=== PATIENT | male | born 1935 | race Caucasian/White ===

== ENCOUNTER 2017-11-26 11:22 | Inpatient (IN) ==
[2017-11-26] MEDS ORDERED: MORPHINE 2 MG/1 ML SYRINGE IV PRN (12:15)
[2017-11-26] MEDS ORDERED: MAGNESIUM SULF RIDER 4 GM in PREMIX 1 EACH IV PRN (12:15)
[2017-11-26] MEDS ORDERED: ONDANSETRON 4 MG/2 ML VIAL IV PRN (12:15)
[2017-11-26] MEDS ORDERED: DOCUSATE SODIUM 100 MG CAPSULE PO PRN (12:15)
[2017-11-26] MEDS ORDERED: MAGNESIUM SULF RIDER 2 GM in PREMIX 1 EACH IV PRN (12:15)
[2017-11-26] MEDS ORDERED: ACETAMINOPHEN 325 MG TABLET PO PRN (12:15)
[2017-11-26] MEDS ORDERED: ALBUTEROL 2.5 MG/3 ML NEB RESP TX PRN (12:18)
[2017-11-26] MEDS ORDERED: DEXTROSE 50% 25 GM/50 ML VIAL IV PRN (12:19)
[2017-11-26] MEDS ORDERED: GLUCAGON 1 MG VIAL IM PRN (12:19)
[2017-11-26] MEDS ORDERED: SOTALOL 80 MG TABLET PO ONE (12:20)
[2017-11-26 13:59] LABS: Basophils # 0.1 10*3/uL (0.0-0.2); Basophils % 1.6 % (0.0-0.8); Eosinophils # 0.5 10*3/uL (0.0-0.87); Eosinophils % 5.3 % (0.00-10.9); Hematocrit 45.1 VOL% (42.0-52.0); Hemoglobin 14.7 GM/DL (14.0-18.0); Immature Granulocytes % 0.5 %; Immature Granulocytes Absolute 0.04 #; Lymphocytes # 1.5 10*3/uL (1.4-4.0); Lymphocytes % 17.4 % (21.2-54.2); Mean Corpuscular HGB Conc 32.6 GM/DL (32-36); Mean Corpuscular Hemoglobin 32 PG (27-34); Mean Corpuscular Volume 97.8 FL (87-102); Mean Platelet Volume 11.7 FL (9.6-12.0); Monocytes # 0.9 10*3/uL (0.11-0.8); Monocytes % 10.4 % (1.7-12.7); Neutrophils # 5.6 10*3/uL (1.4-7.4); Neutrophils % 64.8 % (38.7-73.9); Platelet Count 201 T/CUMM (130-400); Red Blood Count 4.61 MC/CUMM (3.8-5.5); White Blood Count 8.6 T/CUMM (4-12)
[2017-11-26 14:33] LABS: Albumin 3.9 G/DL (3.4-5.0); Bilirubin,Total 0.8 MG/DL (0.2-1.0); Calcium 9.1 MG/DL (8.5-10.1); Osmolality,Calculated 302.4 MOS/KG (273-304); Potassium 4.6 MMOL/L (3.5-5.1); Thyroid Stimulating Hormone 0.908 uIU/ml (0.358-3.74); Total Protein 7.2 G/DL (6.4-8.3)
[2017-11-26 14:52] LABS: Troponin I Only < 0.015 NG/ML (0.00-0.045)
[2017-11-26] MEDS: PANTOPRAZOLE 40 MG TABLET PO SCH (15:30)
[2017-11-26] MEDS: INSULIN REGULAR 100 UNIT/ML SUBCUT SCH ×2 (15:49→21:53)
[2017-11-26 15:59] LABS: Apearance,Urine CLEAR (Clear); Bilirubin,Urine Negative (Negative); Blood, Urine Negative (Negative); Glucose,Urine (UA) Negative (Negative); Ketones,Urine Negative (Negative); Nitrite,Urine Negative (Negative); Protein,Urine Negative; Urine Color Yellow (Yellow); Urine Specific Gravity 1.009 (1.001-1.035); Urine Urobilinogen < 2.0 EU/DL (0.2-1.0); WBC,Urine <1 /HPF (0-6)
[2017-11-26 16:47] LABS: Troponin I Only < 0.015 NG/ML (0.00-0.045)
[2017-11-26] MEDS: INSULIN NPH/REGULAR 70/30 100 UNIT/ML SUBCUT SCH (17:36)
[2017-11-26 20:20] LABS: Troponin I Only < 0.015 NG/ML (0.00-0.045)
[2017-11-26] MEDS: METOPROLOL TARTRATE 50 MG TABLET PO SCH (21:53)
[2017-11-26] MEDS: DILTIAZEM 60 MG TABLET PO SCH (21:53)
[2017-11-26] MEDS: APIXABAN 2.5 MG TABLET PO SCH (21:53)
[2017-11-26] MEDS: FUROSEMIDE 40 MG TABLET PO SCH (21:53)
[2017-11-26] MEDS: ALFUZOSIN 10 MG TABLET PO SCH (21:53)
[2017-11-26] MEDS: ZALEPLON 5 MG CAPSULE PO PRN (23:15)
[2017-11-27 05:58] LABS: Basophils # 0.1 10*3/uL (0.0-0.2); Basophils % 1.3 % (0.0-0.8); Eosinophils # 0.4 10*3/uL (0.0-0.87); Eosinophils % 4.9 % (0.00-10.9); Hemoglobin 13.7 GM/DL (14.0-18.0); Immature Granulocytes % 0.2 %; Immature Granulocytes Absolute 0.02 #; Lymphocytes # 1.7 10*3/uL (1.4-4.0); Lymphocytes % 19.7 % (21.2-54.2); Mean Corpuscular HGB Conc 32.6 GM/DL (32-36); Mean Corpuscular Hemoglobin 31 PG (27-34); Mean Corpuscular Volume 96.1 FL (87-102); Mean Platelet Volume 12.1 FL (9.6-12.0); Monocytes # 0.8 10*3/uL (0.11-0.8); Monocytes % 8.9 % (1.7-12.7); Neutrophils # 5.6 10*3/uL (1.4-7.4); Platelet Count 181 T/CUMM (130-400); Red Blood Count 4.37 MC/CUMM (3.8-5.5); Red Cell Distribution Width 11.8 % (9.3-17.3); White Blood Count 8.7 T/CUMM (4-12)
[2017-11-27 06:52] LABS: Albumin 3.4 G/DL (3.4-5.0); Bilirubin,Total 1.2 MG/DL (0.2-1.0); Calcium 8.8 MG/DL (8.5-10.1); Osmolality,Calculated 307.3 MOS/KG (273-304); Potassium 4.7 MMOL/L (3.5-5.1); Risk Ratio 3.5; VLDL CHOLESTEROL 23.4 MG/DL
[2017-11-27] MEDS: INSULIN REGULAR 100 UNIT/ML SUBCUT SCH ×4 (08:19→20:28)
[2017-11-27] MEDS: INSULIN NPH/REGULAR 70/30 100 UNIT/ML SUBCUT SCH ×2 (09:30→15:54)
[2017-11-27] MEDS: METOPROLOL TARTRATE 50 MG TABLET PO SCH ×2 (09:31→20:47)
[2017-11-27] MEDS: ASPIRIN EC 81 MG TABLET PO SCH (09:31)
[2017-11-27] MEDS: PANTOPRAZOLE 40 MG TABLET PO SCH (09:31)
[2017-11-27] MEDS: FUROSEMIDE 40 MG TABLET PO SCH ×2 (09:31→20:47)
[2017-11-27] MEDS: DILTIAZEM 60 MG TABLET PO SCH ×2 (09:31→20:47)
[2017-11-27] MEDS: APIXABAN 2.5 MG TABLET PO SCH ×2 (09:31→20:47)
[2017-11-27] MEDS: ZALEPLON 5 MG CAPSULE PO PRN (20:47)
[2017-11-27] MEDS: ALFUZOSIN 10 MG TABLET PO SCH (20:47)
[2017-11-28 06:10] LABS: Basophils # 0.1 10*3/uL (0.0-0.2); Basophils % 1.4 % (0.0-0.8); Eosinophils # 0.6 10*3/uL (0.0-0.87); Eosinophils % 6.9 % (0.00-10.9); Hematocrit 38.9 VOL% (42.0-52.0); Immature Granulocytes % 0.5 %; Immature Granulocytes Absolute 0.04 #; Lymphocytes # 2.5 10*3/uL (1.4-4.0); Lymphocytes % 29.1 % (21.2-54.2); Mean Corpuscular HGB Conc 33.4 GM/DL (32-36); Mean Corpuscular Hemoglobin 32 PG (27-34); Mean Corpuscular Volume 94.4 FL (87-102); Mean Platelet Volume 11.9 FL (9.6-12.0); Monocytes # 0.9 10*3/uL (0.11-0.8); Monocytes % 10.8 % (1.7-12.7); Neutrophils # 4.4 10*3/uL (1.4-7.4); Neutrophils % 51.3 % (38.7-73.9); Platelet Count 163 T/CUMM (130-400); Red Blood Count 4.12 MC/CUMM (3.8-5.5); Red Cell Distribution Width 11.8 % (9.3-17.3); White Blood Count 8.5 T/CUMM (4-12)
[2017-11-28 06:50] LABS: Albumin 3.3 G/DL (3.4-5.0); Bilirubin,Total 1.2 MG/DL (0.2-1.0); Calcium 8.4 MG/DL (8.5-10.1); Osmolality,Calculated 299.5 MOS/KG (273-304); Potassium 4.4 MMOL/L (3.5-5.1); Total Protein 5.8 G/DL (6.4-8.3)
[2017-11-28] MEDS: FUROSEMIDE 40 MG TABLET PO SCH ×2 (10:09→21:14)
[2017-11-28] MEDS: INSULIN NPH/REGULAR 70/30 100 UNIT/ML SUBCUT SCH ×2 (10:09→17:21)
[2017-11-28] MEDS: PANTOPRAZOLE 40 MG TABLET PO SCH (10:09)
[2017-11-28] MEDS: ASPIRIN EC 81 MG TABLET PO SCH (10:10)
[2017-11-28] MEDS: DILTIAZEM 60 MG TABLET PO SCH ×2 (10:10→21:13)
[2017-11-28] MEDS: APIXABAN 2.5 MG TABLET PO SCH ×2 (10:10→21:14)
[2017-11-28] MEDS: METOPROLOL TARTRATE 50 MG TABLET PO SCH ×2 (10:10→21:14)
[2017-11-28] MEDS: INSULIN REGULAR 100 UNIT/ML SUBCUT SCH ×4 (10:10→21:11)
[2017-11-28] MEDS: ALFUZOSIN 10 MG TABLET PO SCH (21:14)
[2017-11-28] MEDS: ZALEPLON 5 MG CAPSULE PO PRN (22:39)
[2017-11-29 05:14] LABS: Basophils # 0.1 10*3/uL (0.0-0.2); Basophils % 1.3 % (0.0-0.8); Eosinophils # 0.6 10*3/uL (0.0-0.87); Eosinophils % 6.9 % (0.00-10.9); Hemoglobin 13.1 GM/DL (14.0-18.0); Immature Granulocytes % 0.4 %; Immature Granulocytes Absolute 0.04 #; Lymphocytes # 2.3 10*3/uL (1.4-4.0); Lymphocytes % 25.4 % (21.2-54.2); Mean Corpuscular HGB Conc 34.5 GM/DL (32-36); Mean Corpuscular Hemoglobin 32 PG (27-34); Mean Platelet Volume 12.5 FL (9.6-12.0); Monocytes # 1.1 10*3/uL (0.11-0.8); Monocytes % 12.3 % (1.7-12.7); Neutrophils # 4.9 10*3/uL (1.4-7.4); Neutrophils % 53.7 % (38.7-73.9); Platelet Count 180 T/CUMM (130-400); Red Blood Count 4.13 MC/CUMM (3.8-5.5); Red Cell Distribution Width 11.9 % (9.3-17.3); White Blood Count 9.1 T/CUMM (4-12)
[2017-11-29 06:01] LABS: Albumin 3.4 G/DL (3.4-5.0); Bilirubin,Total 0.8 MG/DL (0.2-1.0); Calcium 8.4 MG/DL (8.5-10.1); Osmolality,Calculated 300.4 MOS/KG (273-304)
[2017-11-29] MEDS: INSULIN REGULAR 100 UNIT/ML SUBCUT SCH ×2 (08:35→11:42)
[2017-11-29 08:38] VITALS: BP 144/83
[2017-11-29] MEDS: INSULIN NPH/REGULAR 70/30 100 UNIT/ML SUBCUT SCH (10:03)
[2017-11-29] MEDS: ASPIRIN EC 81 MG TABLET PO SCH (10:03)
[2017-11-29] MEDS: APIXABAN 2.5 MG TABLET PO SCH (10:04)
[2017-11-29] MEDS: DILTIAZEM 60 MG TABLET PO SCH (10:04)
[2017-11-29] MEDS: FUROSEMIDE 40 MG TABLET PO SCH (10:04)
[2017-11-29] MEDS: METOPROLOL TARTRATE 50 MG TABLET PO SCH (10:05)
[2017-11-29] MEDS: PANTOPRAZOLE 40 MG TABLET PO SCH (10:05)
[2017-11-29] MEDS ORDERED: METOPROLOL TARTRATE 100 MG TABLET PO SCH (10:13)
== END 2017-11-29 11:50 | disposition home or self-care (01) | DRG 308 ==
LOC: N.TELES → OBSVTOIN 13:13
PROVIDERS: ADMIT Internal Medicine Interventional Cardiology; ATTEND Internal Medicine Interventional Cardiology

== ENCOUNTER 2021-02-15 13:25 | Inpatient (IN) ==
[2021-02-15] MEDS ORDERED: ASPIRIN 325 MG TABLET PO STA (14:02)
[2021-02-15] MEDS ORDERED: NITROGLYCERIN 2% OINT 1 INCH/GM PACK TOP STA (14:02)
[2021-02-15] MEDS ORDERED: DEXTROSE 50% 25 GM/50 ML VIAL IV PRN (14:28)
[2021-02-15] MEDS ORDERED: DOCUSATE SODIUM 100 MG CAPSULE PO PRN (14:28)
[2021-02-15] MEDS ORDERED: GLUCAGON 1 MG VIAL IM PRN (14:28)
[2021-02-15] MEDS ORDERED: HEPARIN 5,000 UNIT/1 ML VIAL SUBCUT SCH (15:00)
[2021-02-15] MEDS ORDERED: hydrALAZINE 20 MG/1 ML VIAL IV PRN (15:04)
[2021-02-15] MEDS ORDERED: ENOXAPARIN 80 MG/0.8 ML SYRINGE SUBCUT SCH (16:30)
[2021-02-15] MEDS: ASPIRIN EC 81 MG TABLET PO SCH (20:22)
[2021-02-15] MEDS: METOPROLOL TARTRATE 50 MG TABLET PO SCH (20:22)
[2021-02-15] MEDS ORDERED: APIXABAN 2.5 MG TABLET PO SCH (21:00)
[2021-02-16 05:09] LABS: Basophils # 0.1 10*3/uL (0.0-0.2); Eosinophils # 0.6 10*3/uL (0.0-0.87); Eosinophils % 6.1 % (0.00-10.9); Hematocrit 48.5 VOL% (42.0-52.0); Hemoglobin 16.1 GM/DL (14.0-18.0); Immature Granulocytes % 0.4 %; Immature Granulocytes Absolute 0.04 #; Lymphocytes # 2.2 10*3/uL (1.4-4.0); Lymphocytes % 22.2 % (21.2-54.2); Mean Corpuscular HGB Conc 33.2 GM/DL (32-36); Mean Corpuscular Volume 95.7 FL (87-102); Mean Platelet Volume 11.6 FL (9.6-12.0); Monocytes % 12.5 % (1.7-12.7); Neutrophils % 57.8 % (38.7-73.9); Platelet Count 172 T/CUMM (130-400); Red Blood Count 5.07 MC/CUMM (3.8-5.5); Red Cell Distribution Width 13.7 % (9.3-17.3); White Blood Count 9.8 T/CUMM (4-12)
[2021-02-16 05:35] LABS: Albumin 3.1 G/DL (3.4-5.0); Calcium 9.1 MG/DL (8.5-10.1); Osmolality,Calculated 296.5 MOS/KG (273-304); Potassium 4.1 MMOL/L (3.5-5.1); Risk Ratio 3.46; Thyroid Stimulating Hormone 0.62 uIU/ml (0.358-3.74); Total Protein 6.9 G/DL (6.4-8.2); VLDL Cholesterol 21.2 MG/DL
[2021-02-16] MEDS ORDERED: DILTIAZEM 60 MG TABLET PO SCH (09:00)
[2021-02-16] MEDS ORDERED: APIXABAN 2.5 MG TABLET PO SCH (09:00)
[2021-02-16] MEDS: METOPROLOL TARTRATE 50 MG TABLET PO SCH ×2 (09:37→21:47)
[2021-02-16] MEDS: ENOXAPARIN 30 MG/0.3 ML SYRINGE SUBCUT SCH (09:38)
[2021-02-16 11:37] LABS: Bacteria,Urine Occasional /HPF (Few); Bilirubin,Urine Negative (Negative); Blood, Urine Large mg/dL (Negative); Glucose,Urine (UA) Negative (Negative); Hyaline Casts,Urine 1 /LPF (0-3); Ketones,Urine Negative (Negative); Mucus,Urine Occasional /LPF (Occasional); Nitrite,Urine Negative (Negative); Protein,Urine 30 MG/DL; RBC,Urine 399 /HPF (0-4); Squamous Epithelial Cell,Urine Occasional /HPF (0-10); Urine Appearance CLEAR (Clear); Urine Color Yellow (Yellow); Urine Specific Gravity 1.013 (1.001-1.035); Urine Urobilinogen < 2.0 EU/DL (0.2-1.0)
[2021-02-16] MEDS: INSULIN LISPRO 100 UNIT/ML SUBCUT SCH ×2 (16:16→21:49)
[2021-02-16] MEDS: ASPIRIN EC 81 MG TABLET PO SCH (21:46)
[2021-02-16] MEDS: ACETAMINOPHEN 325 MG TABLET PO PRN (21:47)
[2021-02-16] MEDS: INSULIN GLARGINE 100 UNIT/ML SUBCUT SCH (21:48)
[2021-02-17 04:29] LABS: Basophils # 0.1 10*3/uL (0.0-0.2); Eosinophils # 0.5 10*3/uL (0.0-0.87); Hemoglobin 16.6 GM/DL (14.0-18.0); Immature Granulocytes % 0.4 %; Immature Granulocytes Absolute 0.03 #; Lymphocytes # 2.1 10*3/uL (1.4-4.0); Lymphocytes % 26.1 % (21.2-54.2); Mean Corpuscular HGB Conc 33.9 GM/DL (32-36); Mean Corpuscular Volume 94.4 FL (87-102); Mean Platelet Volume 11.9 FL (9.6-12.0); Monocytes % 14.8 % (1.7-12.7); Neutrophils % 51.7 % (38.7-73.9); Platelet Count 151 T/CUMM (130-400); Red Blood Count 5.19 MC/CUMM (3.8-5.5); Red Cell Distribution Width 13.4 % (9.3-17.3); White Blood Count 7.9 T/CUMM (4-12)
[2021-02-17 04:49] LABS: Bilirubin,Total 1.2 MG/DL (0.2-1.0); Calcium 8.7 MG/DL (8.5-10.1); Osmolality,Calculated 296.2 MOS/KG (273-304); Potassium 4.7 MMOL/L (3.5-5.1); Total Protein 6.7 G/DL (6.4-8.2)
[2021-02-17 04:58] LABS: Uric Acid 9.9 MG/DL (3.5-7.2)
[2021-02-17] MEDS: NITROGLYCERIN SL 0.4 MG TABLET SL PRN ×2 (05:25→05:30)
[2021-02-17 08:20] LABS: Protein/Creatinine Ratio,Urine 0.4 RATIO
[2021-02-17 08:26] LABS: Microalbum Ur Quant Random 75.7 MG/L (0-20); Microalbum/Creat Ratio Random 47.6 RATIO (0-30)
[2021-02-17] MEDS: METOPROLOL TARTRATE 50 MG TABLET PO SCH ×2 (09:13→21:24)
[2021-02-17] MEDS: INSULIN LISPRO 100 UNIT/ML SUBCUT SCH ×4 (09:13→21:26)
[2021-02-17] MEDS: ENOXAPARIN 30 MG/0.3 ML SYRINGE SUBCUT SCH (09:14)
[2021-02-17] MEDS: ACETAMINOPHEN 325 MG TABLET PO PRN ×2 (09:14→21:24)
[2021-02-17] MEDS: ASPIRIN EC 81 MG TABLET PO SCH (21:24)
[2021-02-17] MEDS: NITROGLYCERIN 2% OINT 1 INCH/GM PACK TOP SCH ×2 (21:25→23:33)
[2021-02-17] MEDS: INSULIN GLARGINE 100 UNIT/ML SUBCUT SCH (21:26)
[2021-02-18 04:01] LABS: Basophils # 0.1 10*3/uL (0.0-0.2); Basophils % 0.8 % (0.0-0.8); Eosinophils # 0.5 10*3/uL (0.0-0.87); Eosinophils % 4.7 % (0.00-10.9); Hematocrit 50.7 VOL% (42.0-52.0); Hemoglobin 16.9 GM/DL (14.0-18.0); Immature Granulocytes % 0.5 %; Immature Granulocytes Absolute 0.06 #; Lymphocytes # 1.8 10*3/uL (1.4-4.0); Lymphocytes % 15.9 % (21.2-54.2); Mean Corpuscular HGB Conc 33.3 GM/DL (32-36); Mean Corpuscular Volume 94.8 FL (87-102); Monocytes % 11.3 % (1.7-12.7); Neutrophils % 66.8 % (38.7-73.9); Platelet Count 165 T/CUMM (130-400); Red Blood Count 5.35 MC/CUMM (3.8-5.5); Red Cell Distribution Width 13.5 % (9.3-17.3); White Blood Count 11.2 T/CUMM (4-12)
[2021-02-18 04:26] LABS: Albumin 2.9 G/DL (3.4-5.0); Bilirubin,Total 1.1 MG/DL (0.2-1.0); Calcium 8.8 MG/DL (8.5-10.1); Osmolality,Calculated 301.8 MOS/KG (273-304); Potassium 4.8 MMOL/L (3.5-5.1); Total Protein 7.1 G/DL (6.4-8.2)
[2021-02-18] MEDS: NITROGLYCERIN 2% OINT 1 INCH/GM PACK TOP SCH ×3 (05:12→18:28)
[2021-02-18] MEDS: NITROGLYCERIN SL 0.4 MG TABLET SL PRN ×2 (06:44→06:50)
[2021-02-18] MEDS ORDERED: DIAZEPAM 5 MG TABLET PO ONE (08:46)
[2021-02-18] MEDS ORDERED: diphenhydrAMINE CAP 25 MG CAPSULE PO ONE (08:46)
[2021-02-18] MEDS ORDERED: SODIUM CHLORIDE 0.9% 1,000 ML IV SCH ×2 (09:00→15:40)
[2021-02-18] MEDS ORDERED: MAGNESIUM HYDROXIDE SUSP 30 ML UDCUP PO PRN (09:31)
[2021-02-18] MEDS: INSULIN LISPRO 100 UNIT/ML SUBCUT SCH ×4 (10:10→20:27)
[2021-02-18] MEDS: METOPROLOL TARTRATE 50 MG TABLET PO SCH ×2 (11:16→20:26)
[2021-02-18] MEDS: ENOXAPARIN 30 MG/0.3 ML SYRINGE SUBCUT SCH (11:16)
[2021-02-18] MEDS ORDERED: LIDOCAINE 1% 20 ML VIAL ONE (11:32)
[2021-02-18] MEDS ORDERED: MIDAZOLAM 2 MG/2 ML VIAL ONE (12:14)
[2021-02-18] MEDS ORDERED: TIROFIBAN 5,000 MCG/100 ML PREMIX IV ONE (12:44)
[2021-02-18] MEDS ORDERED: HEPARIN 5,000 UNIT/1 ML VIAL ONE (12:48)
[2021-02-18] MEDS ORDERED: TIROFIBAN 5,000 MCG/100 ML PREMIX IV SCH (12:50)
[2021-02-18] MEDS ORDERED: fentaNYL 100 MCG/2 ML VIAL ONE (13:22)
[2021-02-18] MEDS ORDERED: TICAGRELOR 90 MG TABLET ONE (13:34)
[2021-02-18] MEDS: DILTIAZEM 30 MG TABLET PO SCH ×3 (15:07→20:26)
[2021-02-18 15:54] LABS: CKMB % 11.5 %
[2021-02-18 15:59] LABS: High Sensitive Troponin I* 10211.2 ng/L (0-78)
[2021-02-18] MEDS: ONDANSETRON 4 MG/2 ML VIAL IV PRN (18:28)
[2021-02-18] MEDS: ROSUVASTATIN 20 MG TABLET PO SCH (20:26)
[2021-02-18] MEDS: INSULIN GLARGINE 100 UNIT/ML SUBCUT SCH (20:27)
[2021-02-18] MEDS: TICAGRELOR 90 MG TABLET PO SCH (21:33)
[2021-02-18 22:45] LABS: CKMB % 12.8 %
[2021-02-18 22:48] LABS: High Sensitive Troponin I* 19047.7 ng/L (0-78)
[2021-02-19] MEDS: MELATONIN 3 MG TABLET PO PRN (00:32)
[2021-02-19] MEDS: NITROGLYCERIN 2% OINT 1 INCH/GM PACK TOP SCH ×2 (00:32→06:07)
[2021-02-19 06:53] LABS: Basophils # 0.1 10*3/uL (0.0-0.2); Basophils % 0.6 % (0.0-0.8); Hematocrit 50.8 VOL% (42.0-52.0); Hemoglobin 16.9 GM/DL (14.0-18.0); Immature Granulocytes % 0.8 %; Immature Granulocytes Absolute 0.09 #; Lymphocytes # 1.1 10*3/uL (1.4-4.0); Lymphocytes % 10.1 % (21.2-54.2); Mean Corpuscular HGB Conc 33.3 GM/DL (32-36); Mean Corpuscular Volume 95.8 FL (87-102); Monocytes % 13.3 % (1.7-12.7); Neutrophils % 75.2 % (38.7-73.9); Platelet Count 187 T/CUMM (130-400); Red Cell Distribution Width 13.7 % (9.3-17.3); White Blood Count 11.1 T/CUMM (4-12)
[2021-02-19 07:29] LABS: Albumin 2.9 G/DL (3.4-5.0); Bilirubin,Total 1.8 MG/DL (0.2-1.0); Calcium 8.6 MG/DL (8.5-10.1); Osmolality,Calculated 302.1 MOS/KG (273-304); Potassium 5.6 MMOL/L (3.5-5.1); Total Protein 6.4 G/DL (6.4-8.2)
[2021-02-19] MEDS: ASPIRIN CHEW 81 MG TABLET PO SCH (08:41)
[2021-02-19] MEDS: PANTOPRAZOLE 40 MG TABLET PO SCH (08:41)
[2021-02-19] MEDS: DILTIAZEM CD 120 MG CAPSULE PO SCH (08:41)
[2021-02-19] MEDS: METOPROLOL TARTRATE 50 MG TABLET PO SCH ×2 (08:41→21:26)
[2021-02-19] MEDS: TICAGRELOR 90 MG TABLET PO SCH ×2 (08:42→21:26)
[2021-02-19] MEDS: INSULIN LISPRO 100 UNIT/ML SUBCUT SCH ×4 (08:42→21:27)
[2021-02-19 12:40] LABS: Hepatitis B Core IgM Quant < 0.05 Index; Hepatitis B Surface Ag Quant < 0.10 Index; Hepatitis B Surface Ag Result Non-Reactive (NonReactive); Hepatitis C Virus Ab Quant 0.05 Index; Hepatitis C Virus Ab Result Non-Reactive (NonReactive)
[2021-02-19] MEDS ORDERED: LEVALBUTEROL 0.31 MG/3 ML NEB RESP TX ONE (15:33)
[2021-02-19] MEDS ORDERED: LEVALBUTEROL 0.31 MG/3 ML NEB RESP TX PRN (15:33)
[2021-02-19] MEDS: ROSUVASTATIN 20 MG TABLET PO SCH (21:26)
[2021-02-19] MEDS: INSULIN GLARGINE 100 UNIT/ML SUBCUT SCH (21:27)
[2021-02-20 05:49] LABS: Basophils # 0.1 10*3/uL (0.0-0.2); Basophils % 0.6 % (0.0-0.8); Eosinophils # 0.2 10*3/uL (0.0-0.87); Eosinophils % 1.5 % (0.00-10.9); Hematocrit 47.4 VOL% (42.0-52.0); Hemoglobin 15.8 GM/DL (14.0-18.0); Immature Granulocytes % 0.8 %; Immature Granulocytes Absolute 0.08 #; Lymphocytes # 1.2 10*3/uL (1.4-4.0); Lymphocytes % 11.9 % (21.2-54.2); Mean Corpuscular HGB Conc 33.3 GM/DL (32-36); Mean Corpuscular Volume 94.2 FL (87-102); Mean Platelet Volume 11.9 FL (9.6-12.0); Monocytes % 14.9 % (1.7-12.7); Neutrophils % 70.3 % (38.7-73.9); Platelet Count 179 T/CUMM (130-400); Red Blood Count 5.03 MC/CUMM (3.8-5.5); Red Cell Distribution Width 13.9 % (9.3-17.3); White Blood Count 10.5 T/CUMM (4-12)
[2021-02-20 06:16] LABS: Albumin 2.6 G/DL (3.4-5.0); Bilirubin,Total 1.3 MG/DL (0.2-1.0); Osmolality,Calculated 295.1 MOS/KG (273-304); Potassium 4.6 MMOL/L (3.5-5.1)
[2021-02-20] MEDS ORDERED: LIDOCAINE 2% 5 ML VIAL ONE (07:36)
[2021-02-20] MEDS ORDERED: fentaNYL 100 MCG/2 ML VIAL ONE (07:36)
[2021-02-20] MEDS ORDERED: propofoL 200 MG/20 ML VIAL IV ONE ×2 (07:36→08:44)
[2021-02-20] MEDS: INSULIN LISPRO 100 UNIT/ML SUBCUT SCH ×4 (08:05→21:28)
[2021-02-20] MEDS ORDERED: BUPIVACAINE MPF 0.25% 30 ML VIAL ONE (08:07)
[2021-02-20] MEDS ORDERED: LIDOCAINE 1%/EPI INJ 20 ML VIAL ONE (08:07)
[2021-02-20] MEDS ORDERED: HEPARIN 5,000 UNIT/1 ML VIAL ONE (08:07)
[2021-02-20] MEDS ORDERED: SODIUM CHLORIDE 0.9% 250 ML IV SCH (09:00)
[2021-02-20] MEDS: PANTOPRAZOLE 40 MG TABLET PO SCH (09:44)
[2021-02-20] MEDS: METOPROLOL TARTRATE 50 MG TABLET PO SCH ×2 (09:44→21:27)
[2021-02-20] MEDS: CLOPIDOGREL 75 MG TABLET PO SCH (09:44)
[2021-02-20] MEDS: DILTIAZEM CD 120 MG CAPSULE PO SCH (09:45)
[2021-02-20] MEDS: ASPIRIN CHEW 81 MG TABLET PO SCH (09:45)
[2021-02-20] MEDS ORDERED: HEPARIN 10,000 UNIT/10 ML VIAL IV SCH (13:00)
[2021-02-20] MEDS: ROSUVASTATIN 20 MG TABLET PO SCH (21:27)
[2021-02-20] MEDS: INSULIN GLARGINE 100 UNIT/ML SUBCUT SCH (21:28)
[2021-02-20] MEDS: ONDANSETRON 4 MG/2 ML VIAL IV PRN (21:33)
[2021-02-21 06:10] LABS: Basophils # 0.1 10*3/uL (0.0-0.2); Basophils % 1.1 % (0.0-0.8); Eosinophils # 0.2 10*3/uL (0.0-0.87); Eosinophils % 2.1 % (0.00-10.9); Hematocrit 43.8 VOL% (42.0-52.0); Hemoglobin 14.2 GM/DL (14.0-18.0); Immature Granulocytes % 0.7 %; Immature Granulocytes Absolute 0.06 #; Lymphocytes # 1.3 10*3/uL (1.4-4.0); Lymphocytes % 14.3 % (21.2-54.2); Mean Corpuscular HGB Conc 32.4 GM/DL (32-36); Mean Corpuscular Volume 96.1 FL (87-102); Mean Platelet Volume 11.8 FL (9.6-12.0); Monocytes % 16.6 % (1.7-12.7); Neutrophils % 65.2 % (38.7-73.9); Platelet Count 182 T/CUMM (130-400); Red Blood Count 4.56 MC/CUMM (3.8-5.5); Red Cell Distribution Width 14.3 % (9.3-17.3); White Blood Count 9.1 T/CUMM (4-12)
[2021-02-21 06:28] LABS: Calcium 8.6 MG/DL (8.5-10.1); Osmolality,Calculated 296.1 MOS/KG (273-304); Potassium 4.9 MMOL/L (3.5-5.1)
[2021-02-21 06:34] LABS: Eosinophils 3 % (0-10); Lymphocytes 10 % (20-55); Platelet Estimate Adequate; Segmented Neutrophils 71 % (50-85); Total Cells Counted 100
[2021-02-21] MEDS: CLOPIDOGREL 75 MG TABLET PO SCH (08:57)
[2021-02-21] MEDS: INSULIN LISPRO 100 UNIT/ML SUBCUT SCH ×4 (08:57→22:21)
[2021-02-21] MEDS: PANTOPRAZOLE 40 MG TABLET PO SCH (08:57)
[2021-02-21] MEDS: ASPIRIN CHEW 81 MG TABLET PO SCH (08:57)
[2021-02-21] MEDS: DILTIAZEM CD 120 MG CAPSULE PO SCH ×2 (08:57→22:21)
[2021-02-21] MEDS: METOPROLOL TARTRATE 50 MG TABLET PO SCH ×2 (08:58→22:20)
[2021-02-21] MEDS ORDERED: ALTEPLASE 2 MG VIAL IV SCH (10:00)
[2021-02-21] MEDS ORDERED: POLYETHYLENE GLYCOL POWDER 17 GM PACK PO SCH (20:00)
[2021-02-21] MEDS: SODIUM BICARBONATE 650 MG TABLET PO SCH (22:19)
[2021-02-21] MEDS: ROSUVASTATIN 20 MG TABLET PO SCH (22:20)
[2021-02-21] MEDS: INSULIN GLARGINE 100 UNIT/ML SUBCUT SCH (22:22)
[2021-02-22 05:47] LABS: Basophils # 0.1 10*3/uL (0.0-0.2); Eosinophils # 0.3 10*3/uL (0.0-0.87); Eosinophils % 3.9 % (0.00-10.9); Hematocrit 39.6 VOL% (42.0-52.0); Hemoglobin 13.4 GM/DL (14.0-18.0); Immature Granulocytes % 0.7 %; Immature Granulocytes Absolute 0.06 #; Lymphocytes # 1.5 10*3/uL (1.4-4.0); Lymphocytes % 17.4 % (21.2-54.2); Mean Corpuscular HGB Conc 33.8 GM/DL (32-36); Mean Corpuscular Volume 94.3 FL (87-102); Mean Platelet Volume 11.1 FL (9.6-12.0); Monocytes % 17.3 % (1.7-12.7); Neutrophils % 59.7 % (38.7-73.9); Platelet Count 173 T/CUMM (130-400); Red Cell Distribution Width 14.1 % (9.3-17.3); White Blood Count 8.8 T/CUMM (4-12)
[2021-02-22 06:09] LABS: Calcium 8.4 MG/DL (8.5-10.1); Osmolality,Calculated 297.7 MOS/KG (273-304); Potassium 4.7 MMOL/L (3.5-5.1)
[2021-02-22 06:10] LABS: Eosinophils 5 % (0-10); Lymphocytes 16 % (20-55); Segmented Neutrophils 68 % (50-85); Total Cells Counted 100
[2021-02-22 06:11] LABS: Platelet Estimate Adequate
[2021-02-22] MEDS ORDERED: propofoL 200 MG/20 ML VIAL IV ONE (07:58)
[2021-02-22] MEDS ORDERED: LIDOCAINE 2% 5 ML VIAL ONE (07:58)
[2021-02-22] MEDS ORDERED: MIDAZOLAM 2 MG/2 ML VIAL ONE (07:58)
[2021-02-22] MEDS ORDERED: fentaNYL 100 MCG/2 ML VIAL ONE (07:58)
[2021-02-22] MEDS ORDERED: HEPARIN 5,000 UNIT/1 ML VIAL ONE (08:03)
[2021-02-22] MEDS ORDERED: BUPIVACAINE MPF 0.25% 30 ML VIAL ONE (08:03)
[2021-02-22] MEDS ORDERED: LIDOCAINE 1%/EPI INJ 20 ML VIAL ONE ×2 (08:04→09:18)
[2021-02-22] MEDS ORDERED: TISSUE ADHESIVE 1 EACH APPLICATOR TOP ONE (08:04)
[2021-02-22] MEDS ORDERED: SODIUM CHLORIDE 0.9% 250 ML IV SCH (08:30)
[2021-02-22] MEDS ORDERED: ceFAZolin 1,000 MG VIAL ONE (08:37)
[2021-02-22] MEDS ORDERED: ETOMIDATE 40 MG/20 ML VIAL IV ONE (08:46)
[2021-02-22] MEDS: INSULIN LISPRO 100 UNIT/ML SUBCUT SCH ×4 (09:24→21:02)
[2021-02-22] MEDS: METOPROLOL TARTRATE 50 MG TABLET PO SCH ×2 (10:36→21:01)
[2021-02-22] MEDS: SODIUM BICARBONATE 650 MG TABLET PO SCH ×2 (10:36→21:00)
[2021-02-22] MEDS: ASPIRIN CHEW 81 MG TABLET PO SCH (10:36)
[2021-02-22] MEDS: PANTOPRAZOLE 40 MG TABLET PO SCH (10:37)
[2021-02-22] MEDS: CLOPIDOGREL 75 MG TABLET PO SCH (10:37)
[2021-02-22] MEDS: DILTIAZEM CD 120 MG CAPSULE PO SCH ×2 (10:37→21:01)
[2021-02-22] MEDS: POLYETHYLENE GLYCOL POWDER 17 GM PACK PO PRN (16:17)
[2021-02-22] MEDS: ACETAMINOPHEN 325 MG TABLET PO PRN (16:17)
[2021-02-22] MEDS: ROSUVASTATIN 20 MG TABLET PO SCH (21:00)
[2021-02-22] MEDS: INSULIN GLARGINE 100 UNIT/ML SUBCUT SCH (21:01)
[2021-02-22] MEDS: MELATONIN 3 MG TABLET PO PRN (21:06)
[2021-02-23 05:33] LABS: Basophils # 0.1 10*3/uL (0.0-0.2); Eosinophils # 0.5 10*3/uL (0.0-0.87); Eosinophils % 5.6 % (0.00-10.9); Hematocrit 39.9 VOL% (42.0-52.0); Hemoglobin 13.2 GM/DL (14.0-18.0); Immature Granulocytes % 0.6 %; Immature Granulocytes Absolute 0.05 #; Lymphocytes # 1.5 10*3/uL (1.4-4.0); Lymphocytes % 18.7 % (21.2-54.2); Mean Corpuscular HGB Conc 33.1 GM/DL (32-36); Mean Corpuscular Volume 94.1 FL (87-102); Mean Platelet Volume 11.7 FL (9.6-12.0); Monocytes % 17.8 % (1.7-12.7); Neutrophils % 56.3 % (38.7-73.9); Platelet Count 186 T/CUMM (130-400); Red Blood Count 4.24 MC/CUMM (3.8-5.5); Red Cell Distribution Width 14.2 % (9.3-17.3); White Blood Count 8.2 T/CUMM (4-12)
[2021-02-23 05:46] LABS: Calcium 8.5 MG/DL (8.5-10.1); Osmolality,Calculated 285.1 MOS/KG (273-304); Potassium 4.5 MMOL/L (3.5-5.1)
[2021-02-23 07:45] LABS: Anisocytosis 1+; Eosinophils 9 % (0-10); Lymphocytes 18 % (20-55); Macrocytosis 1+; Platelet Estimate Normal; Segmented Neutrophils 57 % (50-85); Total Cells Counted 100
[2021-02-23] MEDS: ONDANSETRON 4 MG/2 ML VIAL IV PRN (08:54)
[2021-02-23] MEDS: INSULIN LISPRO 100 UNIT/ML SUBCUT SCH ×4 (10:52→20:52)
[2021-02-23] MEDS: ASPIRIN CHEW 81 MG TABLET PO SCH (12:47)
[2021-02-23] MEDS: CLOPIDOGREL 75 MG TABLET PO SCH (12:47)
[2021-02-23] MEDS: SODIUM BICARBONATE 650 MG TABLET PO SCH ×2 (12:47→20:52)
[2021-02-23] MEDS: METOPROLOL TARTRATE 50 MG TABLET PO SCH ×2 (12:47→20:51)
[2021-02-23] MEDS: PANTOPRAZOLE 40 MG VIAL IV SCH (12:48)
[2021-02-23] MEDS: DILTIAZEM CD 120 MG CAPSULE PO SCH ×2 (12:48→20:00)
[2021-02-23] MEDS: METOCLOPRAMIDE 5 MG TABLET PO SCH ×3 (12:58→20:50)
[2021-02-23] MEDS: ROSUVASTATIN 20 MG TABLET PO SCH (20:51)
[2021-02-23] MEDS: MELATONIN 3 MG TABLET PO PRN (20:51)
[2021-02-23] MEDS: INSULIN GLARGINE 100 UNIT/ML SUBCUT SCH (20:52)
[2021-02-24 04:54] LABS: Basophils # 0.1 10*3/uL (0.0-0.2); Basophils % 0.7 % (0.0-0.8); Eosinophils # 0.2 10*3/uL (0.0-0.87); Eosinophils % 1.6 % (0.00-10.9); Hemoglobin 12.9 GM/DL (14.0-18.0); Immature Granulocytes Absolute 0.11 #; Lymphocytes # 0.8 10*3/uL (1.4-4.0); Lymphocytes % 7.4 % (21.2-54.2); Mean Corpuscular HGB Conc 32.3 GM/DL (32-36); Mean Corpuscular Volume 96.6 FL (87-102); Mean Platelet Volume 10.9 FL (9.6-12.0); Monocytes % 15.4 % (1.7-12.7); Neutrophils % 73.9 % (38.7-73.9); Platelet Count 209 T/CUMM (130-400); Red Blood Count 4.14 MC/CUMM (3.8-5.5); Red Cell Distribution Width 14.1 % (9.3-17.3); White Blood Count 11.2 T/CUMM (4-12)
[2021-02-24 05:03] LABS: Calcium 8.4 MG/DL (8.5-10.1); Osmolality,Calculated 281.1 MOS/KG (273-304); Potassium 4.3 MMOL/L (3.5-5.1)
[2021-02-24] MEDS: METOCLOPRAMIDE 5 MG TABLET PO SCH ×4 (09:41→21:06)
[2021-02-24] MEDS: DILTIAZEM CD 120 MG CAPSULE PO SCH ×2 (09:41→21:06)
[2021-02-24] MEDS: ASPIRIN CHEW 81 MG TABLET PO SCH (09:41)
[2021-02-24] MEDS: SODIUM BICARBONATE 650 MG TABLET PO SCH ×2 (09:41→21:08)
[2021-02-24] MEDS: METOPROLOL TARTRATE 50 MG TABLET PO SCH ×2 (09:41→21:07)
[2021-02-24] MEDS: POLYETHYLENE GLYCOL POWDER 17 GM PACK PO PRN (09:42)
[2021-02-24] MEDS: PANTOPRAZOLE 40 MG VIAL IV SCH (09:42)
[2021-02-24] MEDS: INSULIN LISPRO 100 UNIT/ML SUBCUT SCH ×4 (09:42→21:09)
[2021-02-24] MEDS: CLOPIDOGREL 75 MG TABLET PO SCH (09:42)
[2021-02-24] MEDS: MAGNESIUM HYDROXIDE SUSP 30 ML UDCUP PO SCH ×2 (12:13→21:08)
[2021-02-24] MEDS: MELATONIN 3 MG TABLET PO PRN (21:06)
[2021-02-24] MEDS: ROSUVASTATIN 20 MG TABLET PO SCH (21:06)
[2021-02-24] MEDS: INSULIN GLARGINE 100 UNIT/ML SUBCUT SCH (21:09)
[2021-02-25 05:17] LABS: Basophils # 0.1 10*3/uL (0.0-0.2); Basophils % 0.6 % (0.0-0.8); Eosinophils # 0.2 10*3/uL (0.0-0.87); Eosinophils % 1.9 % (0.00-10.9); Hematocrit 40.8 VOL% (42.0-52.0); Hemoglobin 13.3 GM/DL (14.0-18.0); Immature Granulocytes % 0.9 %; Lymphocytes # 1.6 10*3/uL (1.4-4.0); Lymphocytes % 14.9 % (21.2-54.2); Mean Corpuscular HGB Conc 32.6 GM/DL (32-36); Mean Corpuscular Volume 95.6 FL (87-102); Monocytes % 14.2 % (1.7-12.7); Neutrophils % 67.5 % (38.7-73.9); Platelet Count 225 T/CUMM (130-400); Red Blood Count 4.27 MC/CUMM (3.8-5.5); Red Cell Distribution Width 13.9 % (9.3-17.3); White Blood Count 10.9 T/CUMM (4-12)
[2021-02-25 05:28] LABS: Calcium 8.4 MG/DL (8.5-10.1); Osmolality,Calculated 282.2 MOS/KG (273-304); Potassium 4.5 MMOL/L (3.5-5.1)
[2021-02-25] MEDS: METOCLOPRAMIDE 5 MG TABLET PO SCH ×4 (09:07→20:32)
[2021-02-25] MEDS: DILTIAZEM CD 120 MG CAPSULE PO SCH ×2 (09:07→20:32)
[2021-02-25] MEDS: MAGNESIUM HYDROXIDE SUSP 30 ML UDCUP PO SCH ×2 (09:07→20:32)
[2021-02-25] MEDS: METOPROLOL TARTRATE 50 MG TABLET PO SCH ×2 (09:07→20:31)
[2021-02-25] MEDS: ASPIRIN CHEW 81 MG TABLET PO SCH (09:07)
[2021-02-25] MEDS: CLOPIDOGREL 75 MG TABLET PO SCH (09:07)
[2021-02-25] MEDS: SODIUM BICARBONATE 650 MG TABLET PO SCH ×2 (09:07→20:32)
[2021-02-25] MEDS: PANTOPRAZOLE 40 MG VIAL IV SCH (09:08)
[2021-02-25] MEDS: INSULIN LISPRO 100 UNIT/ML SUBCUT SCH ×4 (09:21→21:54)
[2021-02-25] MEDS: ROSUVASTATIN 20 MG TABLET PO SCH (20:32)
[2021-02-25] MEDS: INSULIN GLARGINE 100 UNIT/ML SUBCUT SCH (21:53)
[2021-02-25] MEDS: MELATONIN 3 MG TABLET PO PRN (22:41)
[2021-02-26 06:22] LABS: Basophils # 0.1 10*3/uL (0.0-0.2); Basophils % 0.6 % (0.0-0.8); Eosinophils # 0.3 10*3/uL (0.0-0.87); Eosinophils % 2.1 % (0.00-10.9); Hematocrit 43.4 VOL% (42.0-52.0); Hemoglobin 14.1 GM/DL (14.0-18.0); Immature Granulocytes % 1.1 %; Immature Granulocytes Absolute 0.15 #; Lymphocytes # 1.1 10*3/uL (1.4-4.0); Lymphocytes % 8.3 % (21.2-54.2); Mean Corpuscular HGB Conc 32.5 GM/DL (32-36); Mean Corpuscular Volume 96.7 FL (87-102); Mean Platelet Volume 11.3 FL (9.6-12.0); Monocytes % 14.2 % (1.7-12.7); Neutrophils % 73.7 % (38.7-73.9); Platelet Count 291 T/CUMM (130-400); Red Blood Count 4.49 MC/CUMM (3.8-5.5); Red Cell Distribution Width 13.9 % (9.3-17.3); White Blood Count 13.6 T/CUMM (4-12)
[2021-02-26 06:55] LABS: Calcium 8.8 MG/DL (8.5-10.1); Osmolality,Calculated 283.1 MOS/KG (273-304); Potassium 4.4 MMOL/L (3.5-5.1)
[2021-02-26] MEDS: METOCLOPRAMIDE 5 MG TABLET PO SCH ×3 (07:33→16:35)
[2021-02-26] MEDS: INSULIN LISPRO 100 UNIT/ML SUBCUT SCH ×3 (07:52→16:35)
[2021-02-26] MEDS: METOPROLOL TARTRATE 50 MG TABLET PO SCH (09:17)
[2021-02-26] MEDS: ASPIRIN CHEW 81 MG TABLET PO SCH (09:17)
[2021-02-26] MEDS: DILTIAZEM CD 120 MG CAPSULE PO SCH (09:18)
[2021-02-26] MEDS: MAGNESIUM HYDROXIDE SUSP 30 ML UDCUP PO SCH (09:18)
[2021-02-26] MEDS: CLOPIDOGREL 75 MG TABLET PO SCH (09:18)
[2021-02-26] MEDS: SODIUM BICARBONATE 650 MG TABLET PO SCH (09:20)
[2021-02-26] MEDS: PANTOPRAZOLE 40 MG VIAL IV SCH (09:20)
[2021-02-26 13:32] VITALS: BP 116/54
[2021-02-27] MEDS ORDERED: PANTOPRAZOLE 40 MG TABLET PO SCH (06:30)
== END 2021-02-26 16:55 | disposition home health service (06) | DRG 246 ==
LOC: N.EDINP 13:25 → N.ED 13:25 → SUATTDRO 14:14 → N.TELES 15:37 → SUATTDRO 02-17 14:14
PROVIDERS: ADMIT Hospitalist; ATTEND Internal Medicine Geriatric Medicine
PROC: CLCCHCL (ICD-10-PCS; 2021-02-18 10:45)